=== PATIENT | female | born 1980 | race Caucasian/White ===

== ENCOUNTER 2020-04-27 17:42 | Emergency (ER) | payer OTHER ==
[~2020-04-27] VITALS: Ht 162.6 cm; Wt 52.3 kg
[2020-04-27 18:38] LABS: BASOPHILS % (AUTO) 0.9 % (0-1); EOSINOPHILS % (AUTO) 0.5 % (0-6); HEMATOCRIT 32.7 % (35.0-45.0); HEMOGLOBIN 10.5 g/dl (12.0-16.0); LYMPHOCYTES # (AUTO) 0.9 X10'3 (1.1-4.8); LYMPHOCYTES % (AUTO) 22.6 % (21-51); MEAN CORPUSCULAR HEMOGLOBIN 24.3 PG (27.0-31.0); MEAN CORPUSCULAR HGB CONC 32.3 g/dL (33.0-36.5); MEAN CORPUSCULAR VOLUME 75.3 FL (78-98); MEAN PLATELET VOLUME 7.9 FL (7.4-10.4); MONOCYTES # (AUTO) 0.4 X10'3 (0-0.9); MONOCYTES % (AUTO) 9.4 % (2-12); NEUTROPHILS # (AUTO) 2.8 X10'3 (1.8-7.7); NEUTROPHILS % (AUTO) 66.6 % (42-75); PLATELET COUNT 319 X10'3 (140-440); RED BLOOD COUNT 4.33 X10'6 (4.20-5.60); RED CELL DISTRIBUTION WIDTH 18.4 % (11.5-14.5); WHITE BLOOD COUNT 4.2 X10'3 (4.5-11.0)
[2020-04-27 18:43] LABS: URINE HCG NEGATIVE (NEG)
[2020-04-27 18:55] LABS: URINE AMPHETAMINE SCREEN NEGATIVE (Neg); URINE BARBITUATE SCREEN NEGATIVE (Neg); URINE BENZODIAZEPINES SCREEN NEGATIVE (Neg); URINE CANNABINOID SCREEN POSITIVE (Neg); URINE COCAINE SCREEN NEGATIVE (Neg); URINE METHADONE SCREEN NEGATIVE (Neg); URINE OPIATE SCREEN NEGATIVE (Neg); URINE PHENCYCLIDINE SCREEN NEGATIVE (Neg)
[2020-04-27 18:56] LABS: ALANINE AMINOTRANSFERASE 20 U/L (12-78); ALBUMIN 4.4 G/DL (3.4-5.0); ALBUMIN/GLOBULIN RATIO 1.2 (1.1-1.5); ALKALINE PHOSPHATASE 54 IU/L (46-116); ANION GAP 11 (8-16); ASPARTATE AMINO TRANSFERASE 23 U/L (10-37); BILIRUBIN,TOTAL 0.2 MG/DL (0.1-1.0); BLOOD UREA NITROGEN 9 MG/DL (7-18); BUN/CREATININE RATIO 10.3 (6.6-38.0); CALCIUM 9.3 MG/DL (8.5-10.1); CHLORIDE 104 MMOL/L (99-107); CREATININE 0.87 MG/DL (0.40-0.90); GLUCOSE 156 MG/DL (70-104); POTASSIUM 3.9 MMOL/L (3.5-5.1); SODIUM 141 MMOL/L (135-145); TOTAL CARBON DIOXIDE 25.7 MMOL/L (24-32); TOTAL PROTEIN 8.1 G/DL (6.4-8.2); eGFR 72 ML/MIN
[2020-04-27 19:06] LABS: ETHANOL < 0.010 GM/DL (0.0-0.010)
--- NOTE | 2020-04-27 19:27 | NUR ---
[facility] [employer] unconfirmed patient reports family discrepancies that her family has kept her kids that she is from [place] and her father has Covid19 she has not seen him and is worried she or the kids will never see him again she needed to pack house and return keys today to her Uncle Hoang with psychiatric problems he takes nedications for this and my mother or children do not understand the issues or concerns I have and wanted to donate her items so the raised his voice and was warned not to drive in his condition this man brought kids to her moms [address]. She reports this man Hoang uncle is hiding his children. She is leaving to [place] and her family is afraid she is taking them home mother is keeping kids. Patient called police and felt paranoid that her kids were being taken from her and he ex the kids dad argued that she is keeping kids from him. The police handcuffed her and she waited as police talks to her she was told she is going to penitentiary for warrants. She was mistaken for another woman and accused of taking meth.
--- NOTE | 2020-04-27 19:36 | NUR ---
my mother took my car as the keys were given to her bu the police department and now my car is in the [place] area.
[2020-04-27] MEDS ORDERED: NO HOME MEDS (19:39)
--- NOTE | 2020-04-27 20:05 | NUR ---
Received call from Erik she requested that we find out form the patien where her car that she loaned her is parked. She was advised to call the hospital by the police to find where her car is parked. Julianne asked and report that it is parked up the street from the [facility]. Erik reports that I need to go back and ask patient to describe the buidlings where the car is parked. advised I gave her all the inof the patient gave to me. I went back a second time and julianne reports to tell her it is at the house, erik said its not there that I need to question her further. Advised I have questioned her twice and that is all the information she is darek jurado at this time. Erik asked me to please keep going back that I need to find where her car is. Advised I have asked twice she said ok and hung up the phone.
--- NOTE | 2020-04-27 21:15 | NUR ---
RESTING, NO NEEDS AT THIS TIME. HOPES EVALUATION WILL HAPPEN SOON.
--- NOTE | 2020-04-28 01:10 | NUR ---
Pt came to the doorway of her room , has blanket wrapped around her shouders, and is talking with the furs salesperson/Sitter, Franci. She is retelling the story of the events leading her getting here and reiterates that she is being held here unfairly and that her family is against her and is not telliing the true events of what happened.
--- NOTE | 2020-04-28 01:21 | NUR ---
RN Rudy, in to check in on Pt (because she was her nurse last night and has good rapport w/pt) and asked if she wants to take Rx for sleep and pt declined. States she will drink some chamomile tea.
[2020-04-28] MEDS ORDERED: Melatonin 3mg tablet PO SCH (02:35)
--- NOTE | 2020-04-28 02:45 | NUR ---
PT ATTEMPTED TO DRINK SOME HERBAL TEA AWHILE AGO AND REPORTS IT MADE HER NAUSEAUS. NO DRINKING ICE WATER AND REPROTS NAUSEA IS SUBSIDINIG. SHE REPROTS SHE DOES NOT TAKE ANY PHARMACUTICAL MEDS AND SHE USES NATURAL REMEDIES FOR AILMENTS, BUT SHE IS VERY STRESSED D/T EVENTS OF TODAY AND SHE NEEDS TO SLEEP. SHE IS NOW AGREEABLE TO TAKING A SLEEP AID. AGREEABLE TO TAKING MELATONIN. VERBAL FOR THIS RECEIVED FROM DR. DE LUNA
--- NOTE | 2020-04-28 03:51 | NUR ---
AROUND 2:30 AM PT WAS AGREEABLE TO TAKING THE MELATONIN BUT WHEN I ARRIVED TO GIVE TO HER 1/2 HR LATER, SHE REPORTED SHE WAS ALMOST ASLEEP AND DID NOT NEED IT. PT APPEARS TO BE ASLEEP, LYING ON HER BACK WITH BLANKETS COVERING TO HER CHEST. SITTER WITHIN VIEW OF PT AAT.
[2020-04-28 05:19] VITALS: BP 136/96
--- NOTE | 2020-04-28 07:00 | NUR ---
PT IS IN HER ROOM. PACING AROUND. PT IS VERY ANXIOUS TO MEET WITH [facility]
--- NOTE | 2020-04-28 08:18 | NUR ---
PT IS SPEAKING WITH HER MOM ON THE PHONE
--- NOTE | 2020-04-28 09:45 | NUR ---
pt walked over from er room 13 to overflow 24
--- NOTE | 2020-04-28 10:00 | NUR ---
pt is resting no issues at this time
--- NOTE | 2020-04-28 11:00 | NUR ---
pt is resting.
--- NOTE | 2020-04-28 11:56 | NUR ---
family is coming to [place] the patient this afternoon
--- NOTE | 2020-04-28 12:01 | NUR ---
PT'S MOTHER CALLED TO INFORM US THAT PT'S STEP DAUGHTER WILL BE PICKING HER UP AROUND 1300 TODAY.
[2020-04-28] MEDS ORDERED: Melatonin 3mg tablet PO ONE (21:00)
== END 2020-04-28 12:53 | disposition home or self-care (01) ==
LOC: ER 17:43
DX: F29 Unspecified psychosis not due to a substance or known physiological condition (principal)
CPT/HCPCS: 36415; 80053; 80305; 80320; 81025; 84443; 85025; 99285

== ENCOUNTER 2024-09-12 17:25 | Emergency (ER) | payer OTHER ==
[~2024-09-12] VITALS: Ht 157.5 cm; Wt 52.3 kg
[~2024-09-12 17:25] MED LIST: NO HOME MEDS
--- NOTE | 2024-09-12 18:52 | Physician Documentation ---
History of Present Illness ~ General Chief Complaint: Multiple Medical Complaints Stated Complaint: "I THINK OF WATER IN MY EAR" Time Seen by MD: 18:10 History of Present Illness Initial Comments This is a 43-year-old female who presents with right ear discomfort for the past three days after swimming in [facility] along with worsening nasal congestion, sinus pressure, and feeling of itchy eyes for the past 2-3 days. Patient reports no fever, describes ear discomfort as feel like I have water stuck in my ear Medication Reconciliation Allergies: Coded Allergies: No Known Allergies (Unverified , 09/12/24) Scheduled Ciprofloxacin Hcl/Hc Otic Susp* (Cipro Hc Otic Susp*), 3 DROP RIGHT EAR Q12H Fluticasone Propionate (Flonase), 2 SPRAYS BOTHNARES DAILY Miscellaneous Medications Home Med List (No Home Medications), (Reported) Past Medical History Past Medical History: No Pertinent History Past Surgical History: noncontributory Drug Use: none Lives In: Home Review of Systems ROS Right ear discomfort, sinus congestion, eye irritation as stated above in the HPI, otherwise all systems are reviewed and negative. Physical Exam Physical Exam Vital Signs: Temperature: 97.0, Heart Rate: 90, Respiratory Rate: 16, BP: 114/75, Pulse Oximetry: 99, Weight: 52.270 Physical Exam VITALS: Reviewed and as above. GENERAL: Alert, nontoxic appearing, no apparent distress. HEENT: Right auditory canal mild irritation, right TM mildly injected no bulging, otherwise clear with normal light reflex. Left TM nonbulging, clear with normal light reflex. No sinus pain with palpation or percussion, no cervical lymphadenopathy RESPIRATORY: No increased work of breathing, no respiratory distress, speaking in full clear sentences clear lung sounds in all christians[place] CV: Regular rate and rhythm no murmur Progress Results/Orders Results/Orders Vital Signs 09/12/24 09/12/24 18:00 19:20 Temp 97.0 98.6 Pulse 90 90 Resp 16 18 B/P (MAP) 114/75 113/74 Pulse Ox 99 99 Medical Decision Making Findings This 43-year-old female presented with right ear discomfort for the past three days after swimming and worsening sinus congestion and eye irritation for the past approximately 2-3 days, physical exam of the right ear did demonstrate some mild irritation and given onset after swimming I do suspect otitis externa that is we treated with otic ear drops, sinus congestion and eye irritation may represent allergies as patient does report seasonal allergies and is traveling from out of the area which would increase the likelihood of exposure to allergens though this could represent early URI symptoms. It was reassuring patient did not report any fever, sinus pain, or other symptoms suggestive of bacterial sinusitis. Remainder of physical exam was benign and patient was appropriate for outpatient follow up. Patient was already on a daily allergy medication and will be prescribed intranasal steroid for additional coverage for sinus congestion. Patient provided home care instructions and return to care precautions which she verbalized understanding of. Differential Diagnosis Bacterial sinusitis, otitis media, meningitis, URI, allergic rhinitis, retained foreign body, tympanic membrane perforation, Departure Time of Disposition: 18:57 Disposition: HOME / SELF CARE / HOMELESS Impression: Primary Impression: Otitis externa Qualified Codes: H60.501 - Unspecified acute noninfective otitis externa, right ear Additional Impression: Rhinosinusitis Condition: Improved Discharge Instructions: Allergic Rhinitis, Adult, [id number], Otitis Externa, [id number] Additional Instructions: Please use the antibiotic ear drops as prescribed, avoid getting water in your ear from swimming (do not submerge your head in water). Use the Flonase daily as I believe your symptoms are related to your allergies, though this medication can also help with sinus congestion related to a cold. Please follow up with your primary care provider in the next few days. Please return to the emergency department for any new or worsening concerning symptoms including but not limited to a fever over 100.4 that does not lower with ibuprofen or Tylenol. Referrals: NO PRIMARY CARE PROVIDER (PCP) Prescriptions Fluticasone Propionate (Flonase) 16 Gm [place].susp 2 SPRAYS BOTHNARES DAILY for 30 Days, #16 GM Prov: LORRIE GOLD 09/12/24 Ciprofloxacin Hcl/Hc Otic Susp* (Cipro Hc Otic Susp*) 10 Ml Bottle 3 DROP RIGHT EAR Q12H for 7 Days, #10 ML Prov: LORRIE GOLD 09/12/24 Education Educated: Patient Educated regarding: diagnosis, treatment, prognosis, need for follow up Signature Scribe Signature: No scribe Attestation: The note accurately reflects work and decisions made by me.GEORGE Waite 09/13/24 02:40 LORRIE GOLD September 12, 2024 18:52
[2024-09-12] MEDS ORDERED: FLUT16SP2 BOTHNARES (19:02)
[2024-09-12] MEDS ORDERED: CIPR10DR RIGHT EAR (19:02)
[2024-09-12 19:20] VITALS: BP 113/74; PULSE 90; RESP 18; TEMP 98.6; O2SAT 99
== END 2024-09-12 19:21 | disposition home or self-care (01) ==
LOC: ER 17:26
DX: H60.91 Unspecified otitis externa, right ear (principal); J32.9 Chronic sinusitis, unspecified
CPT/HCPCS: 99283